=== PATIENT | female | born 1965 | race Caucasian/White ===

== ENCOUNTER 2024-01-08 10:25 | Emergency (ER) | payer BC, SELFPAY ==
[2024-01-08 10:30] VITALS: BP 138/80; PULSE 80; RESP 20; TEMP 36.8; O2SAT 99; BMI 28.3
[2024-01-08] MEDS: DEXAMETHASONE 4MG/ML 1ML VIAL 8 MG IM (10:51)
[2024-01-08 10:53] VITALS: BP 138/80; PULSE 80; RESP 20; TEMP 36.8; O2SAT 99
--- NOTE | 2024-01-08 10:55 | ED_ITS ---
Discharge Plan Disposition Patient Disposition: Home, Self-Care Condition: Good Prescriptions Prescriptions: New amoxicillin 875 mg tablet 875 mg PO Q12H Qty: 20 0RF methylprednisolone 4 mg Tablets,Dose Pack 4 mg PO DIRECTED 6 Days Qty: 21 0RF Rx Instructions: Take 1 pack as directed for 6 days meclizine 25 mg tablet 25 mg PO DAILY PRN (Reason: dizziness) Qty: 30 0RF Referrals Follow up/Referrals: Trevin Hansen MD [Primary Care Provider] - See instructions Activity Restrictions/Add. Instructions Additional Instructions/Restrictions: Drink plenty of fluids. Take tylenol or ibuprofen for pain or fever. Take the medications as directed. Follow up with your regular doctor. GO TO THE ER FOR ANY WORSENING SYMPTOMS Don't start the oral steroids (medrol dose pack) until tomorrow since you had the shot her Clinical Impressions Clinical Impression: Otitis media, Benign paroxysmal positional vertigo Instructions Patient Instructions: Middle Ear Infection, Benign Paroxysmal Positional Vertigo, Dexamethasone Injection Print Language Print Language: Greenlandic Discharge ED Provider: Marvin De La Fuente [facility] General Stated complaint: pain in R ear Mode of Arrival: Ambulatory Source of Information: Patient Limitations: No Limitations Time Seen by Provider: 01/08/24 10:55 Description of Symptoms (Recalled from Triage Doc. by RN): PATIENT C/O DIZZINESS AND POSSIBLE INNER EAR INFECTION X 2 DAYS HEENT Symptoms (Recalled from RN notes): Yes Resp Symptoms (Recalled from RN notes): No Skin Symptoms (Recalled from RN notes): No MS Symptoms (Recalled from RN notes): No Functional Status (Recalled from RN notes): WNL History of Present Illness Provider Complaint: She states that for that 2 days she has had ear pain, intermittent dizziness and sinus congestion. Related Data Previous Rx's ?Medication ?Instructions ?Recorded amoxicillin 875 mg tablet 875 mg PO Q12H #20 tabs 01/08/24 meclizine 25 mg tablet 25 mg PO DAILY PRN dizziness #30 01/08/24 tabs methylprednisolone 4 mg tablets in 4 mg PO DIRECTED 6 days #21 tabs 01/08/24 a dose pack Allergies Allergy/AdvReac Type Severity Reaction Status Date / Time No Known Allergies Allergy Verified 01/08/24 10:47 Worker's Comp Is this a Worker's Comp case?: No [facility] Disclaimer: The information contained in this section may have been updated after the patient was seen, as this information can be updated by other users. Medical History (Updated 01/08/24 @ 10:51 by Marvin De La Fuente APRN) No significant past medical history Social History Smoking Status: Never smoker alcohol intake: never current occupational status: retired Travel in the last 8 weeks: None ROS Obtained: Yes All systems reviewed & no additional complaints except as documented Constitutional Constitutional: Denies chills, Reports fever(s) and Reports poor appetite Eyes Eyes: Denies eye discharge ENT Ears, Nose, Mouth, and Throat: Denies ear discharge, Reports otalgia, Denies hearing loss, Denies sinus pain and Reports sore throat Cardiovascular Cardiovascular: Denies chest pain and Denies dyspnea Respiratory Respiratory: Denies chest congestion, Reports cough and Denies dyspnea Gastrointestinal Gastrointestingal: Denies abdominal pain, diarrhea, nausea or vomiting Musculoskeletal Musculoskeletal: Denies arthralgias Integumentary/Breasts Skin/Breast: Denies rash Physical Exam General General appearance: alert and in no apparent distress Head Head exam: atraumatic, normocephalic and normal inspection Eye Eye exam: Present normal appearance; Absent PERRL or EOMI ENT ENT exam: Present mucous membranes moist and normal external ear exam Expanded ENT Exam TM/Canal exam: Bilateral TM: erythema, bulging and effusion Nose exam: Absent sinus tenderness Nasal speculum exam: Bilateral: normal Mouth exam: Present normal external inspection and other; Absent drooling Teeth exam: Present normal inspection Throat exam: Present tonsillar erythema and tonsillomegaly Neck Neck exam: Present normal inspection, full ROM and trachea midline; Absent tenderness, meningismus or lymphadenopathy Chest Chest inspection: Present normal inspection and symmetric chest wall rise; Absent tenderness Respiratory Respiratory exam: Present normal lung sounds bilaterally; Absent respiratory distress, wheezes or stridor Cardiovascular Cardiovascular exam: Present regular rate, normal rhythm and normal heart sounds; Absent tachycardia or irregular rhythm Abdominal Exam Abdominal exam: Present soft and normal bowel sounds; Absent distention, tenderness, guarding, rebound or rigidity Extremities Exam Extremities exam: Present normal inspection and normal capillary refill; Absent tenderness, joint swelling or calf tenderness Back Exam Back exam: Present normal inspection and full ROM; Absent tenderness, CVA tenderness (R) or CVA tenderness (L) Neurological Exam Neurological exam: Present alert, oriented X3, CN II-XII intact, normal gait and reflexes normal; Absent motor sensory deficit Psychiatric Psychiatric exam: Present normal affect and normal mood Skin Skin exam: Present warm, dry, intact and normal color Lymphatic Lymphatic Findings: no adenopathy Medical Decision Making Medical Records Medical records reviewed: No I reviewed the patient's medical records. [place] Inquiry Pt receiving controlled substance: No Vital Signs: 01/08/24 10:30 01/08/24 10:53 Temperature 98.3 F 98.3 F Temperature Source Oral Pulse Rate 80 Pulse Rate [Left Brachial] 80 Respiratory Rate 20 20 Blood Pressure 138/80 Blood Pressure [Left Arm] 138/80 Blood Pressure Mean [Left Arm] 99 Blood Pressure Source [Left Arm] Automatic Cuff Blood Pressure Position [Left Arm] Sitting 02 Sat by Pulse Oximetry 99 Oxygen Delivery Method Room Air Orders (Tests/Meds): ED MEDICATIONS Discontinued Medications Generic Name Dose Route Start Last Admin Trade Name Freq PRN Reason Stop Dose Admin Dexamethasone Sodium Phosphate 8 mg 01/08/24 10:45 01/08/24 10:51 Dexamethasone 4mg/Ml 1ml Vial IM 01/08/24 10:46 8 mg ONCE ONE Administration
== END 2024-01-08 11:01 | disposition home or self-care (01) ==
PROVIDERS: Emergency Provider Nurse Practitioner Family; PCP Internal Medicine
DX: H66.91 Otitis media, unspecified, right ear (principal); H81.10 Benign paroxysmal vertigo, unspecified ear; R09.81 Nasal congestion
CPT/HCPCS: 96372; 99204; 99212; G0463; J1100